=== PATIENT | female | born 2000 | race Caucasian/White ===

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

== ENCOUNTER 2021-04-16 21:42 | Emergency (ER) | payer SELFPAY ==
[~2021-04-16] VITALS: Ht 165.1 cm; Wt 72.6 kg
== END 2021-04-17 00:27 | disposition home or self-care (01) ==
LOC: ED 21:42
DX: U07.1 COVID-19 (principal)
CPT/HCPCS: 71045; 99284-25; U0003

== ENCOUNTER 2024-11-13 16:18 | Emergency (ER) | payer OTHER ==
[~2024-11-13] VITALS: Ht 165.1 cm; Wt 86.2 kg
[2024-11-13 16:45] VITALS: BP 130/82
== END 2024-11-13 16:45 | disposition home or self-care (01) ==
LOC: ED 16:18
DX: N92.6 Irregular menstruation, unspecified (principal)
CPT/HCPCS: 99283